=== PATIENT | female | born 1950 | race African-American/Black ===

== ENCOUNTER → 2016-09-14 | Outpatient (CLI) | payer OTHER ==
--- NOTE | ~2016-09-14 | XA30 ---
[facility] A Service of [facility] & [facility] RADIOLOGY TEXT RESULTS PATIENT: JILLIAN DOSHI LOCATION: [facility] : 54 UNIT #: [id number] AGE: [address]: Ron Ro MD SEX: F ORDER DR: [id number] [facility] [address] [place], [place] [address] [id number] O MR#: [id number] Acc #: [id number] NAME: JILLIAN DOSHI : 1950 SEX: F STUDY DATE/TIME: 09/14/2016 10:22 UNIT: [facility] ROOM: STUDY DESCRIPTION: XA Arthrocentesis Major Joint Attending Physician: Ron Ro M.D. Ordering Physician: Ron Ro M.D. Primary Care Physician: Shaneka Almanza A.P.R.N. MEDICAL IMAGING REPORT This report is preliminary unless electronic signature is present EXAM Left hip injection under fluoroscopy HISTORY Chronic Left hip pain. FINDINGS Procedure, attendant risks and options were discussed with the patient. She understands and wishes to proceed. The skin was prepped and draped over the left groin with sterile drape and Chlorhexidine solution. Under fluoroscopy and local anesthesia a 22-gauge spinal needle was inserted in the joint and confirmed with injection. A total of 8 mL of lidocaine, 2 mL of 40 mg/mL Depo-Medrol, and 3 mL of bupivacaine was injected directly into the joint. A single spot radiograph was obtained. Total fluoroscopy time 0.8 minutes. CONCLUSION Successful left hip arthrogram and injection under fluoroscopy. Dictated by... Wyatt Cabrera M.D. THIS IS AN ELECTRONICALLY VERIFIED REPORT Wyatt Cabrera M.D. at 09/17/2016 12:00 PM Lázaro TD: 09/14/2016 19:39 JOB #: [id number] MEDICAL IMAGING REPORT Page 1 of 1 COPY
== END | disposition home or self-care (01) ==
LOC: CIVR 09:49
DX: M16.12 Unilateral primary osteoarthritis, left hip (principal)
CPT/HCPCS: 77002; J1030; Q9966